=== PATIENT | female | born 1970 | race Caucasian/White ===

== ENCOUNTER 2022-11-10 00:17 | Day surgery (SDC) | payer BC, SELFPAY ==
[2022-10-30 09:29] VITALS: BMI 43.5
--- NOTE | 2022-11-09 12:55 | P.PNAN_ITS ---
Anes - Initial Pre Proc Eval Procedure: Operation Date: 11/10/22 07:30 Proposed Procedures p Screening Colonoscopy - Gael Gutierrez MD Date/Time: 11/09/22 12:55 Surgeon: Gael Gutierrez MD Pre Op Diagnosis: Neoplasm Screening Patient Data Age: 51 Gender: F Height: 1.73 m Weight: 130 kg Allergies Allergy/AdvReac Type Severity Reaction Status Date / Time No Known Allergies Allergy Verified 11/10/22 06:27 Home Medications Medication Instructions Recorded Confirmed Type cholecalciferol (vitamin D3) 50 50 mcg PO DAILY 06/13/22 10/30/22 History mcg (2,000 unit) chewable tablet fexofenadine 180 mg tablet 180 mg PO DAILY 06/13/22 10/30/22 History (Mari Allergy) fluticasone propionate 50 2 spray intranasal DAILY 06/13/22 10/30/22 History mcg/actuation nasal spray,suspension (Flonase Allergy Relief) ergocalciferol (vitamin D2) 1,250 1,250 mcg PO WEEKLY #12 caps 09/01/22 10/30/22 Rx mcg (50,000 unit) capsule Turmeric Curcumin 1 tablet PO DAILY 10/30/22 10/30/22 History magnesium malate, chelate 360 mg PO DAILY 10/30/22 10/30/22 History methylprednisolone 4 mg tablets in See Rx Instructions PO PER PKG DIR 11/08/22 11/10/22 Rx a dose pack (Medrol (Anderson)) #21 ea montelukast 10 mg tablet 10 mg PO DAILY #90 tabs 11/08/22 11/10/22 Rx (Singulair) Patient hx anesthesia problems: none Family hx anesthesia problems: none Results Review: All pre-operative results and documents have been reviewed as part of the pre- operative evaluation. [facility] Past Medical History Medical History Asthma Surgical History Surgical History History of appendectomy 02/08/15 Social History Social History Smoking status: Never smoker Alcohol use details: social Substance use: never Living arrangements: with family Occupation/Education: occupation Gender identity (if verbalized by the patient): Female Spiritual care concerns: No Anes - Eval Final PreProcedure Day of Procedure 11/09/22 12:55 Patient weight: morbidly obese Heart: regular rate and rhythm Lungs: clear to auscultation Airway: Mallampati scale class II Neurological: alert and oriented Last oral intake: >/= 8 hours ASA classification: III Emergent: no Anesthetic plan: proceed Anesthesia type and monitoring: general GIVS and standard monitoring Results Review: All pre-operative results and documents have been reviewed as part of the pre- operative evaluation. Informed Consent: The patient's anesthetic plan and its attendant risks and benefits were discussed with the patient/family/POA. Questions were solicited and answers provided to the satisfaction of the patient/family/POA.
[2022-11-10 06:29] VITALS: BP 165/82; PULSE 82; RESP 19; TEMP 36.2; O2SAT 98
[2022-11-10] MEDS: LACTATED RINGERS 1,000 ML 150 ML IV CONT (06:44)
--- NOTE | 2022-11-10 07:12 | PM.HPGS ---
History of Present Illness History of Present Illness Consent: Risks, benefits, and alternatives have been discussed and questions answered. Patient agrees to proceed with procedure. Chief complaint: Neoplasm Screening Narrative: Brinda Fair is a 51 year old female Presents for screening colonoscopy. Patient's current weight appetite and bowel movements are normal. Patient denies abdominal pain. She has had no bleeding. Family history significant both mother and father have had colon polyps. Patient presents today for screening colonoscopy. Review of Systems Review of Systems: Review of systems is noncontributory. [facility] Past Medical History Medical History Asthma Surgical History Surgical History History of appendectomy 02/08/15 Social History Social History Smoking status: Never smoker Alcohol use details: social Substance use: never Living arrangements: with family Occupation/Education: occupation Gender identity (if verbalized by the patient): Female Spiritual care concerns: No Meds Home Medications and Allergies Home Medications Medication Instructions Recorded Confirmed Type cholecalciferol (vitamin D3) 50 50 mcg PO DAILY 06/13/22 10/30/22 History mcg (2,000 unit) chewable tablet fexofenadine 180 mg tablet 180 mg PO DAILY 06/13/22 10/30/22 History (Mari Allergy) fluticasone propionate 50 2 spray intranasal DAILY 06/13/22 10/30/22 History mcg/actuation nasal spray,suspension (Flonase Allergy Relief) ergocalciferol (vitamin D2) 1,250 1,250 mcg PO WEEKLY #12 caps 09/01/22 10/30/22 Rx mcg (50,000 unit) capsule Turmeric Curcumin 1 tablet PO DAILY 10/30/22 10/30/22 History magnesium malate, chelate 360 mg PO DAILY 10/30/22 10/30/22 History methylprednisolone 4 mg tablets in See Rx Instructions PO PER PKG DIR 11/08/22 11/10/22 Rx a dose pack (Medrol (Anderson)) #21 ea montelukast 10 mg tablet 10 mg PO DAILY #90 tabs 11/08/22 11/10/22 Rx (Singulair) Allergies Allergy/AdvReac Type Severity Reaction Status Date / Time No Known Allergies Allergy Verified 11/10/22 06:27 Vital Signs Vital Signs - 24 hr 11/10/22 06:29 Temperature 97.2 F L Pulse Rate 82 Respiratory Rate 19 Blood Pressure 165/82 H Pulse Oximetry 98 Oxygen Delivery Room Air Exam Narrative: Physical exam reveals patient to be alert. Vital signs stable. HEENT exam is unremarkable. Patient is anicteric. Lungs are clear to auscultation and percussion. Heart is without murmur or extra sounds. Abdomen bowel sounds are present soft nontender with no organomegaly. Digital external rectal exam is normal. Assessment and Plan Assessment and plan (1) Family history of colonic polyps: Code(s): Z83.71 - Family history of colonic polyps Status: Acute Assessment and Plan: Patient presents today for screening colonoscopy. Both mother and father had colon polyps. Consider follow-up colonoscopy at 5 year intervals in the future. Further recommendations may be given after endoscopy.
[2022-11-10 07:44] VITALS: BP 126/76; PULSE 88; RESP 20; O2SAT 95
[2022-11-10 07:54] VITALS: BP 118/71; PULSE 72; RESP 18; O2SAT 97
[2022-11-10 08:04] VITALS: BP 119/75; PULSE 74; RESP 20; O2SAT 98
== END 2022-11-10 08:13 | disposition home or self-care (01) ==
PROVIDERS: PCP Physician Assistant Medical; Visit Provider Internal Medicine Gastroenterology
PROC: 0DJD8ZZ Inspection of Lower Intestinal Tract, Via Natural or Artificial Opening Endoscopic (ICD-10-PCS; CPT 45378; principal; 2022-11-10 07:30)
DX: Z12.11 Encounter for screening for malignant neoplasm of colon (principal); K63.5 Polyp of colon; K57.30 Diverticulosis of large intestine without perforation or abscess without bleeding; Z83.71 Family history of colonic polyps; J45.909 Unspecified asthma, uncomplicated; Z79.52 Long term (current) use of systemic steroids; E66.01 Morbid (severe) obesity due to excess calories; Z68.41 Body mass index [BMI] 40.0-44.9, adult
CPT/HCPCS: 45385; 88305; J2704; J7120

== ENCOUNTER 2024-06-23 16:53 | Outpatient (CLI) | payer BC, SELFPAY ==
--- NOTE | ~2024-06-23 | CT_ITS ---
EXAMINATION: CT abdomen pelvis wo con DATE: 06/23/2024 17:34 INDICATION: R31.9 - Hematuria, unspecified TECHNIQUE: Computed tomography (CT) of the abdomen and pelvis was performed without intravenous contr ast. Automated exposure control and iterative reconstruction technique were employed. The dose-length product was 1497.05 mGy-cm. COMPARISON: None. FINDINGS: Lower thorax: Unremarkable Liver: Mildly enlarged. Diffuse fatty infiltration. Biliary/Gallbladder: Gallbladder is normal. No bile duct dilation. Pancreas: No mass or duct dilation. Spleen: Normal. Adrenals:No mass. Kidneys: No suspicious mass, obstructing stone, or hydronephrosis. GI tract: No small or large bowel dilation. Status post appendectomy. Diverticulosis without divertic ulitis. Mesentery/Peritoneum: No ascites, mass, or free air. Retroperitoneum: No mass. Pelvis: Pelvic organs are within normal limits. Soft Tissues: Small, uncomplicated, fat-containing umbilical and bilateral inguinal hernias. Bones: No acute osseous finding. Severe left hip osteoarthritis. IMPRESSION: Mild hepatomegaly with steatosis. Diverticulosis without diverticulitis. Severe left hip osteoarthritis. Otherwise unremarkable CT abdomen and pelvis findings. Reviewed, dictated and finalized at location K.
== END 2024-06-23 16:54 | disposition home or self-care (01) ==
LOC: ANHIMG 16:54
PROVIDERS: PCP Physician Assistant Medical; Visit Provider Nurse Practitioner Family
DX: M16.12 Unilateral primary osteoarthritis, left hip (principal); K57.30 Diverticulosis of large intestine without perforation or abscess without bleeding; K76.0 Fatty (change of) liver, not elsewhere classified
CPT/HCPCS: 74176